=== PATIENT | male | born 2000 | race Hispanic/Latino ===

== ENCOUNTER 2025-04-21 13:37 | Emergency (ER) | payer BC ==
[~2025-04-21] VITALS: Ht 162.6 cm; Wt 61.4 kg
[2025-04-21 14:59] LABS: BASO # 0.0 10^3/uL (0.0-0.2); BASO % 0.2 % (0.0-1.0); EOS # 0.0 10^3/uL (0.0-0.5); EOS % 0.0 % (0.0-3.0); LYMPH # 1.7 10^3/uL (1.5-5.0); LYMPH % 9.4 % (24.0-44.0); MONO # 0.8 10^3/uL (0.0-0.8); MONO % 4.2 % (2.0-8.0); NEUTROPHILS # 15.7 10^3/uL (1.5-8.5); NEUTROPHILS % 85.5 % (36.0-66.0); PLATELET COUNT, AUTOMATED 235 10^3/uL (150-450)
[2025-04-21 15:25] LABS: ALT/SGPT 16 U/L (7.0-40); AST/SGOT 17 U/L (<34); CALCIUM LEVEL 10.3 MG/DL (8.5-10.1); CARBON DIOXIDE LEVEL 26 MMOL/L (20-31); CHLORIDE LEVEL 103 MMOL/L (98-107); CREATININE FOR GFR 0.83 MG/DL (0.70-1.30); GLOMERULAR FILTRATION RATE > 90.0 (>60); POTASSIUM SERUM 4.2 MMOL/L (3.5-5.1); SODIUM LEVEL 143 MMOL/L (136-145)
[2025-04-21] MEDS ORDERED: ISOVUE-370 76% 100 ML VIAL As Ordered ONE (16:51)
[2025-04-21] MEDS: ONDANSETRON 4MG 2ML VIAL IV ONE (17:18)
[2025-04-21] MEDS: NS (Normal Saline) 0.9% 1,000 ML IV ONE (17:19)
[2025-04-21] MEDS: NS 500 ML IV ONE (18:25)
[2025-04-21] MEDS: PANTOPRAZOLE 40MG VIAL IV ONE (18:42)
[2025-04-21] MEDS: CAPSAICIN 0.025% CR 60 GM TOP ONE (18:44)
[2025-04-21 19:31] LABS: HEPATITIS C VIRUS ABY INDEX < 0.02 INDEX (<0.8)
[2025-04-21] MEDS ORDERED: ONDA-282 PO (19:52)
[2025-04-21 20:01] VITALS: BP 143/82; TEMP 97.2; O2SAT 100
== END 2025-04-21 20:15 | disposition left against medical advice (07) ==
LOC: M ED 13:37
DX: D72.829 Elevated white blood cell count, unspecified (principal); R74.01 Elevation of levels of liver transaminase levels; Z53.9 Procedure and treatment not carried out, unspecified reason; F12.10 Cannabis abuse, uncomplicated; Z88.5 Allergy status to narcotic agent
CPT/HCPCS: 74177; 80048; 80074; 80076; 83605; 83690; 85025; 87486; 87581; 87633; 87798; 96361; 96374; 96375; 99284; J2405; J2470; Q9967